=== PATIENT | female | born 1995 | race Two or more races ===

== ENCOUNTER 2019-06-25 13:20 | Emergency (ER) | payer MEDICAID ==
[2019-06-25 13:45] LABS: O2 DELIVERY DEVICE ROOM AIR
[2019-06-25 13:46] LABS: BICARBONATE,VENOUS 22 mmol/l (19-25); O2 SATURATION VENOUS 98.6 % (60-80); PCO2 VENOUS 31 mmHg (41-51); PH,VENOUS 7.46 (7.31-7.41); PO2 VENOUS 101 mmHg (35-42)
--- NOTE | 2019-06-25 14:04 | EDM.PDOC ---
<Roderick Keenan - Last Filed: 06/25/19 13:59> ED HPI GENERAL MEDICAL PROBLEM - General Chief Complaint: General Stated Complaint: CARBON MONOXIDE EXPOSURE Time Seen by Provider: 06/25/19 13:59 Source of Information: Reports: Patient, RN, RN Notes Reviewed History Limitations: Reports: No Limitations - History of Present Illness INITIAL COMMENTS - FREE TEXT/NARRATIVE: 23 y.o F presents to ER after exposure to carbon monoxide at work last night. 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 Pt reports emesis, dizziness, blurry vision which all started this AM but states that this is normal for her being 8 months . Patient reports that she had a headache last night, but symptoms worsened today. Patient reports she works at [employer], was working with one other employee. Patient reports that she is 8 months , reports normal movement last night but reports having diminished movement today. She also complains of eye irritation that started last night as well. Her OB provider is Dr. Hightower. Onset Date: 06/24/19 Duration: Constant Location: Reports: Head, Face Quality: Reports: Ache Severity: Mild Improves with: Reports: None Worsens with: Reports: None Associated Symptoms: Reports: Headaches - Related Data Allergies Allergy/AdvReac Type Severity Reaction Status Date / Time No Known Allergies Allergy Verified 06/25/19 13:30 Home Meds: Home Meds Vit with Ca/FA/Iron [ Plus Iron] 2 tab PO DAILY 03/20/19 [ History] Past Medical History - Past Health History Medical/Surgical History: Denies Medical/Surgical History [employer] History: Reports: Social & Family History - Family History Family Medical History: Noncontributory - Tobacco Use Smoking Status *Q: Never Smoker - Caffeine Use Caffeine Use: Reports: None - Recreational Drug Use Recreational Drug Use: No ED ROS GENERAL - Review of Systems Review Of Systems: Comprehensive ROS is negative, except as noted in HPI. ED EXAM, GENERAL - Physical Exam Exam: See Below Exam Limited By: No Limitations General Appearance: Alert, WD/WN, No Apparent Distress Eye Exam: Bilateral Eye: EOMI, Normal Inspection, PERRL Ears: Normal External Exam, Normal Canal, Hearing Grossly Normal, Normal TMs Ear Exam: Bilateral Ear: Auricle Normal, Canal Normal, TM normal Nose: Normal Inspection, Normal Mucosa, No Blood Throat/Mouth: Normal Inspection, Normal Lips, Normal Teeth, Normal Gums, Normal Oropharynx, Normal Voice, No Airway Compromise Head: Atraumatic, Normocephalic Neck: Normal Inspection, Supple, Non-Tender, Full Range of Motion Respiratory/Chest: No Respiratory Distress, Lungs Clear, Normal Breath Sounds, No Accessory Muscle Use, Chest Non-Tender Cardiovascular: Normal Peripheral Pulses, Regular Rate, Rhythm, No Edema, No Gallop, No JVD, No Murmur, No Rub GI/Abdominal: Normal Bowel Sounds, Soft, Non-Tender, No Organomegaly, No Distention, No Abnormal Bruit, No Mass Extremities: Normal Inspection, Normal Range of Motion, Non-Tender, Normal Capillary Refill, No Pedal Edema Neurological: Alert, Oriented, CN II-XII Intact, Normal Cognition, Normal Gait, Normal Reflexes, No Motor/Sensory Deficits Psychiatric: Normal Affect, Normal Mood Skin Exam: Warm, Dry, Intact, Normal Color, No Rash Course - Vital Signs Last Recorded V/S: Last Vital Signs Temp 36.4 C 06/25/19 13:24 Pulse 97 06/25/19 13:24 Resp 20 06/25/19 13:24 BP 137/100 H 06/25/19 13:24 Pulse Ox 98 06/25/19 13:24 - Orders/Labs/Meds Labs: Laboratory Tests 06/25/19 06/25/19 06/25/19 Range/Units 13:38 13:38 13:38 WBC 7.8 (5.0-10.0) 10^3/uL RBC 3.82 L (4.2-5.4) 10^6/uL Hgb 11.0 L (12.0-16.0) g/dL Hct 32.0 L (37.0-47.0) % MCV 83.8 (80-100) fL MCH 28.8 (27.0-34.0) pg MCHC 34.4 (33.0-35.0) g/dL Plt Count 232 (150-450) 10^3/uL Neut % (Auto) 71.8 (42.2-75.2) % Lymph % (Auto) 21.7 (20.5-50.1) % [place] % (Auto) 5.6 (2-8) % Eos % (Auto) 0.8 L (1.0-3.0) % Baso % (Auto) 0.1 (0.0-1.0) % ABG Carboxyhemoglobin 1.2 (0-10) % VBG pH 7.46 H (7.31-7.41) VBG pCO2 31 L (41-51) mmHg VBG pO2 101 H (35-42) mmHg VBG HCO3 22 (19-25) mmol/l VBG O2 Saturation 98.6 H (60-80) % VBG Base Excess -1.0 ((-2)-(+3)) mmol/l O2 Delivery Device Room air Sodium 135 (135-145) mmol/L Potassium 3.8 (3.6-5.0) mmol/L Chloride 107 (101-111) mmol/L Carbon Dioxide 22.0 (21.0-31.0) mmol/L Anion Gap 9.8 BUN 5 L (7-18) mg/dL Creatinine 0.4 L (0.6-1.3) mg/dL Est Cr Clr Drug Dosing 206.52 mL/min Estimated GFR (MDRD) > 60 BUN/Creatinine Ratio 12.50 Glucose 94 (74-105) mg/dL Calcium 9.2 (8.4-10.2) mg/dl Total Bilirubin 0.4 (0.2-1.0) mg/dL AST 21 (10-42) IU/L ALT 21 (10-60) IU/L Alkaline Phosphatase 206 H (42-121) IU/L Total Protein 6.9 (6.7-8.2) g/dl Albumin 2.9 L (3.2-5.5) g/dl Globulin 4.0 Albumin/Globulin Ratio 0.73 Departure - Departure Disposition: Home, Self-Care 01 Clinical Impression: Carbon monoxide exposure - Discharge Information Forms: ED Department Discharge Care Plan Goals: The patient was advised of the examination and lab results during the visit. The patient was sent from the ED to OB to have a non-stress test for further evaluation of the fetus. If the patient has any additional symptoms or concerns , the patient should either return to the emergency department or visit her primary care facility. Sepsis Event Note - Evaluation Sepsis Screening Result: No Definite Risk - Focused Exam Vital Signs: Vital Signs Temp Pulse Resp BP Pulse Ox 06/25/19 13:24 36.4 C 97 20 137/100 H 98 Date Exam was Performed: 06/25/19 Time Exam was Performed: 13:59 <Matthew Smith M - Last Filed: 06/25/19 14:35> Course - Re-Assessments/Exams Free Text/Narrative Re-Assessment/Exam: 06/25/19 14:31 I have examined the patient. I have discussed findings and treatment plan with the PA student. I agree with the assessment and plan in the following students note. A consult was made with Dr. Rahman regarding he patient's history, examination and lab results. Dr. Rahman encouraged us to have the patient taken to OB to have a non-stress test done. Departure - Departure Time of Disposition: 14:33 Condition: Fair - Discharge Information *PRESCRIPTION DRUG MONITORING PROGRAM REVIEWED*: Not Applicable *COPY OF PRESCRIPTION DRUG MONITORING REPORT IN PATIENT MARIA LUISA: Not Applicable Sepsis Event Note - Focused Exam Date Exam was Performed: 06/25/19 Time Exam was Performed: 14:31
[2019-06-25 14:05] LABS: ANION GAP 9.8; CHLORIDE,CL 107 mmol/L (101-111); SODIUM,NA 135 mmol/L (135-145)
== END 2019-06-25 15:15 | disposition home or self-care (01) ==
LOC: DL.ED 13:20
DX: O9A.213 Injury, poisoning and certain other consequences of external causes complicating pregnancy, third trimester (principal); T58.91XA Toxic effect of carbon monoxide from unspecified source, accidental (unintentional), initial encounter
CPT/HCPCS: 36415; 80053; 82375; 82803; 85025; 99283

== ENCOUNTER 2019-08-02 23:49 | Inpatient (IN) | payer MEDICAID ==
--- NOTE | 2019-08-03 04:23 | PCM.LDHP ---
L&D History of Present Illness - General Date of Service: 08/03/19 (Admit H&P) Admit Problem/Dx: Admission Diagnosis/Problem Admission Diagnosis/Problem 08/03/19 04:19 spontaneous rupture of membranes Source of Information: Patient, Family, Other (EPIC notes/ episode and records) History Limitations: Reports: No Limitations - History of Present Illness Introduction:: Delightful 24yo with SO presents as @ 39w6d with SROM clear fluid. No cxns. Baby active. has had good care. see notes. Location, : Reports: Uterus - Related Data Allergies/Adverse Reactions: Allergies Allergy/AdvReac Type Severity Reaction Status Date / Time No Known Allergies Allergy Verified 08/03/19 00:38 Home Medications: Home Meds Vit with Ca/FA/Iron [ Plus Iron] 1 tab PO DAILY 03/20/19 [ History] Ferrous Sulfate 325 mg PO DAILY 07/24/19 [History] Past Medical History - Past Health History Medical/Surgical History: Denies Medical/Surgical History [employer] History: Reports: Social & Family History - Family History Family Medical History: Noncontributory - Tobacco Use Smoking Status *Q: Never Smoker Second Hand Smoke Exposure: No - Caffeine Use Caffeine Use: Reports: None - Recreational Drug Use Recreational Drug Use: No - Living Situation & Occupation Living situation: Reports: with Family Social History Comment: from [facility]. Father got job here with [employer] and mother moved up here. She came up here to live with mother. Bernabe Aguillon is her SO/FOB and will be involved. nonsmoker. H&P Review of Systems - Review of Systems: Review Of Systems: Comprehensive ROS is negative, except as noted in HPI. L&D Exam - Exam Exam: See Below - Vital Signs Weight: 220 lb - Exam General: Alert, Oriented HEENT: PERRLA, Conjunctiva Clear, EACs Clear, EOMI, Hearing Intact, Mucosa Moist & Neal, Nares Patent, Normal Nasal Septum, Posterior Pharynx Clear, TMs Clear Neck: Supple, Trachea Midline Lungs: Clear to Auscultation, Normal Respiratory Effort Cardiovascular: Regular Rate, Regular Rhythm GI/Abdominal Exam: Normal Bowel Sounds, Soft, Non-Tender, No Organomegaly, No Distention, No Abnormal Bruit, No Mass, Pelvis Stable Rectal Exam: Normal Exam, Normal Rectal Tone Genitourinary: Normal external exam, Cervical dilitation (2+, 90% 0 station), Cervical fluid, Enlarged uterus, Other (vertex) Back Exam: Normal Inspection, Full Range of Motion Extremities: Normal Inspection, Normal Range of Motion, Non-Tender, No Pedal Edema, Normal Capillary Refill Skin: Warm, Dry, Intact Neurological: Cranial Nerves Intact, Reflexes Equal Bilateral Psychiatric: Alert, Normal Affect, Normal Mood - Patient Data Lab Results Last 24 hrs: Laboratory Results - last 24 hr 08/03/19 Range/Units 01:05 Membrane Rupture Positive (NEG) - Problem List (1) Term SNOMED Code(s): 09846188 ICD Code: Z34.90 - ENCNTR FOR SUPRVSN OF NORMAL , UNSP, UNSP TRIMESTER Status: Acute Current Visit: Yes (2) Spontaneous rupture of amniotic membranes SNOMED Code(s): 519238275 ICD Code: [id number] - Status: Acute Current Visit: Yes (3) Blood type O- SNOMED Code(s): 441528471 ICD Code: Z67.41 - TYPE O BLOOD, RH NEGATIVE Status: Acute Current Visit : Yes (4) Rubella immune SNOMED Code(s): 985752794 ICD Code: Z78.9 - OTHER SPECIFIED HEALTH STATUS Status: Acute Current Visit: Yes (5) Group B Streptococcus not isolated SNOMED Code(s): 026782975 ICD Code: [id number] - Status: Acute Current Visit: Yes (6) NST (non-stress test) reactive SNOMED Code(s): 008355281 ICD Code: Z36.89 - ENCOUNTER FOR OTHER SPECIFIED SCREENING Status : Acute Current Visit: Yes Problem List Initiated/Reviewed/Updated: Yes Orders Last 24hrs: Active Orders 24 hr Category Date Time Status EFM [ Heart Rate] [RC] Click to Edit Care 08/03/19 00:52 Active OB Check [OM.PC] Click To Edit Care 08/03/19 00:51 Ordered Assessment/Plan Comment:: Assessment: 24yo @ 39w6d with SROM, not in active labor NST reactive blood type O negative RI GBS negative BV treated cervix 2+cm, 90% effaced, vertex well-applied has gotten Tdap and flu shot Plan: routine admit orders CBC discussed plan with pat and SO will start pitocin augmentation/induction planning for intrathecal all questions answered for this delightful couple. they are happy with plan and care. ronnieb
[2019-08-03] MEDS ORDERED: Sodium Chloride 0.9% 10 ML Syringe FLUSH PRN (04:32)
[2019-08-03] MEDS ORDERED: Misoprostol 400 MCG (4 X 100 MCG TAB) RECTAL PRN (04:32)
[2019-08-03] MEDS ORDERED: Lidocaine 1% 30 ML SDV INJECT PRN (04:32)
[2019-08-03] MEDS ORDERED: Lactated Ringers 1,000 ML IV ONE (04:32)
[2019-08-03] MEDS ORDERED: Methylergonovine 0.2 MG/1 ML Amp IM PRN (04:32)
[2019-08-03] MEDS ORDERED: Carboprost Tromethamine 250 MCG/1 ML Amp IM PRN (04:32)
[2019-08-03] MEDS ORDERED: Tranexamic Acid 1,000 MG in Sodium Chloride 0.9% 100 ML IV PRN (04:32)
[2019-08-03] MEDS ORDERED: Acetaminophen 325 MG Tab PO PRN (04:32)
[2019-08-03] MEDS: Lactated Ringers 1,000 ML IV SCH ×4 (05:10→23:43)
[2019-08-03] MEDS: Oxytocin/Normal Saline 30 UNIT/500 ML BAG IV SCH (05:11)
--- NOTE | 2019-08-03 14:16 | PCM.SN ---
- Free Text/Narrative Note: DOS: 08-03-2019 Progress note: doing well. pitocin @ 6 in tub cervix at my last check was 4+, 90+% effaced, had come anterior, vertex well applied, 0 continues to leak copious amounts clear fluid contractions have increased in strength/intensity and frequency. she is planning intrathecal. tracing look reassuring at this time. late decels have resolved. current baseline 150 with accels present. Cat 1 strip labs: hgb 11.1, WBC 11.6, PLT 225. continue to follow. all questions answered for this delightful couple, Pradip and Ty. ronnieb
[2019-08-03] MEDS: Ondansetron 4 MG/2 ML SDV IVPUSH PRN ×2 (18:26→23:43)
[2019-08-03] MEDS ORDERED: fentaNYL 100 MCG/2 ML SDV ONE ×2 (18:40→23:45)
[2019-08-03] MEDS ORDERED: EPINEPHrine 1 MG/1 ML Amp ONE ×3 (18:40→23:46)
[2019-08-03] MEDS ORDERED: Sodium Bicarbonate 4.2% 2.5 MEQ/5 ML SDV ONE ×3 (18:41→23:46)
[2019-08-03] MEDS ORDERED: Sodium Chloride 0.9% 10 ML Syringe ONE (18:42)
[2019-08-03] MEDS ORDERED: fentaNYL 100 MCG/2 ML SDV ITHECAL ONE (18:42)
--- NOTE | 2019-08-03 19:09 | PCM.SN ---
- Free Text/Narrative Note: Intrathecal.sitting position, sterile prep and drape. 1% lidocaine w bicarb for skinwheal to L2 L3 interspace. Introducer, 24 ga pencan x 1. Pos CSF, neg heme, neg parasthesia. 0.1 ml pf 1:1000 epi, 20 mcg pf sufenta, 30 mcg pf fentanyl, 0.4 ml pf NS and 6 mg of 0.75 % pf marcaine injected after CSF aspiration. Pt to L lateral position. Procedure time 1844 to 1914
--- NOTE | 2019-08-04 00:20 | PCM.SN ---
- Free Text/Narrative Note: Intrathecal.sitting position, sterile prep and drape. 1% lidocaine w bicarb for skinwheal to L2 L3 interspace and L3 L4 interspace. Introducer, 24 ga pencan x 2. 1 attempt at L3 L4 interspace. Pos CSF at L2 L3 interspace, neg heme, neg parasthesia. 0.1 ml pf 1:1000 epi, 20 mcg pf sufenta, 30 mcg pf fentanyl, 0.4 ml pf NS and 6 mg of 0.75 % pf marcaine injected after CSF aspiration. Pt to L lateral position. Procedure time 2345 to 0020
--- NOTE | 2019-08-04 01:07 | PCM.SN ---
- Free Text/Narrative Note: DOS: 08-04-2019 Pt had 2nd intrathecal just placed by Alejandro with good results. Pitocin @ 13. cervix at 6 before, not making very fast changes. Cat 1 strip right now. IUPC placed, FSE placed. cervix very stretchy now--7cm, soft, 90+% effaced inner os vertex, slight overlapping sutures fluid clear. will increase pitocin as needed. baseline appears to be 13-20, peaks at 35-50. MVU and contractions inadequate at this point. will continue to monitor closely. hmb
[2019-08-04] MEDS ORDERED: ceFAZolin 1 GM in Premix Bag 1 BAG IV ONE (02:35)
[2019-08-04] MEDS: Lactated Ringers 1,000 ML IV SCH ×2 (02:40→17:05)
[2019-08-04] MEDS ORDERED: ceFAZolin 2 GM in Premix Bag 1 BAG IV ONE (02:45)
[2019-08-04] MEDS ORDERED: Citric Acid/Sodium Citrate Solution 30 ML Cup PO ONE (02:45)
[2019-08-04] MEDS ORDERED: Oxytocin/Normal Saline 60 UNIT/1,000 ML BAG ONE (02:53)
--- NOTE | 2019-08-04 03:43 | PN ---
DATE: 08/04/2019 A 24-year-old, 1, para 0, who has presented and is currently 40 weeks' gestation, came in with ruptured membranes and not in labor. Has been on Pitocin augmentation all day. She is now at 20 milliunits and has not made any significant cervical progress over the last several hours. Her cervix is now at 6+ cm. It is starting to show some cervical swelling. head has not shown any significant descent over the last several hours, and the baby is in a persistent OP presentation. She is having some overlapping/overriding of sutures. She has had 2 intrathecals, and internal IUPC and scalp electrode have been placed, and we have been monitoring her with those. At this point, with my last check, she did develop some bradycardia into the 90s that was sustained for several minutes. The Pitocin was turned off, and the heart tones have recovered. At this point, she is remote from vaginal delivery and is not making any significant progress. Options were discussed with the patient and the father of the baby, and we will proceed with primary low-transverse section for her. As the heart tones at this point have recovered, if they continue to look good, we will hope to go with spinal anesthesia for her. Dr. Cisneros will be assisting. Further management pending status. I have reviewed the procedure with the patient and the father of the baby with risks, alternatives, and benefits. Risks included, but were not limited to hemorrhage and the possible need of blood transfusion with its inherent risks, infection with possible need of antibiotics, we will plan on Ancef 2 g for preop antibiotic, the risk of blood clot, DVT and PE, and the use of Jose stockings, SCDs and early ambulation to help with prevention, the risk of injury to maternal organs or fetus, the risk of reaction to anesthesia, etc. They appeared to understand these risks and wished to proceed. Consent was obtained both verbally and written. We will proceed as planned. [facility] /[id number]
[2019-08-04] MEDS: Oxytocin/Normal Saline 30 UNIT/500 ML BAG IV SCH (04:19)
[2019-08-04] MEDS ORDERED: Naloxone 2 MG/2 ML Syringe IVPUSH PRN (04:35)
[2019-08-04] MEDS ORDERED: ePHEDrine 50 MG/ML SDV IVPUSH PRN (04:35)
[2019-08-04] MEDS ORDERED: diphenhydrAMINE 50 MG/ML SDV IVPUSH PRN (04:35)
[2019-08-04] MEDS ORDERED: Acetaminophen/oxyCODONE 325-5 MG Tab PO PRN (04:35)
--- NOTE | 2019-08-04 04:56 | OR ---
DATE: 08/04/2019 PROCEDURE: Primary low-transverse section with 2 layer closure--( patient is a TOLAC/ candidate) SURGEON: Briseyda Rahman MD. LOOP DRIER OPERATOR: Rema Piedra MD. PREOPERATIVE DIAGNOSES: 1. A 24-year-old, 1, para 0, at 40 weeks gestation. 2. Spontaneous rupture of membranes with failure to progress/failure to descend. 3. Persistent occiput posterior presentation with intolerance to labor. 4. O negative blood type. 5. Rubella immune. 6. Group B streptococcus negative. POSTOPERATIVE DIAGNOSES: 1. A 24-year-old, 1, now para 1, at 40 weeks' gestation. 2. Primary low-transverse section for failure to progress/failure to descend and confirmed persistent right occiput posterior presentation. 3. A viable male , 8 pounds/3615 g with scores of 9 and 9. 4. O negative blood type. 5. Rubella immune. 6. Group B streptococcus negative. 7. PLTCS with 2 layer closure--patient is a TOLAC/ candidate. PROCEDURE IN DETAIL: The patient was brought down to the OR suite and underwent spinal anesthesia with excellent results. She was prepped and draped in the usual sterile manner. A Boo catheter had been placed on the OB floor. A time - out was performed in my presence. A purple skin marker was used to amado the appropriate incision site. A skin incision was made with the scalpel and carried down through the subcutaneous tissue with electrocautery. The fascia was divided transversely. Fascial flaps, superior and inferior were developed with sharp and blunt dissection. The rectus was divided in the midline and the peritoneum was identified and entered bluntly. This was opened until we had excellent visualization of the lower uterine segment. Extra large Rivas retractor was placed without difficulty. Bladder flap was developed with sharp and blunt dissection. A stab incision was made into the lower uterine segment and extended bilaterally with blunt dissection. The baby was confirmed to be in a right OP position. The vertex was elevated up into the incision, and this viable male infant was delivered. A loop of cord was noted to be near the chin and neck, but was not wrapped around the neck. The baby was born at 3:42 a.m. on 08/04/2019. scores were 9 and 9 at 1 and 5 minutes respectively, and he had a strong cry at . He was suctioned and dried immediately, and Dr. Cisneros doubly clamped and then cut the cord and carried the baby over to the waiting nursery staff. His weight was later found to be 8 pounds/3615 g. A cord blood sample was obtained by vt. Then, the placenta was removed intact. The uterus was wiped clean and dry. The placenta was later inspected and found to be complete with a small succenturiate lobe. A 3-vessel cord was noted. The uterine incision edges were grasped with Noriega forceps and then closed with a running locking #1 Vicryl suture. A second imbricating layer was placed with excellent hemostasis. The incision was inspected and found to be hemostatic. The Rivas retractor was removed and the gutters were irrigated, aspirated, and examined and found to be dry and free of all clots. The incision was again inspected and was hemostatic. The uterus, fallopian tubes, ovaries, and maternal organs appeared within normal limits. The peritoneum was closed with a running Vicryl suture. The fascial layer was closed with a running PDS loop suture with excellent results. The subcutaneous layer was irrigated, and there were no sign of significant bleeders. The skin layer was brought together with virgil. The patient tolerated the procedure well and there were no intraoperative complications. Her estimated blood loss was 400 mL. She continued to drain clear urine throughout the procedure. All instrument and sponge counts were correct. The patient was transferred to recovery in good condition. We will follow routine postop/ and recovery instructions. [facility] /[id number] [place]
[2019-08-04] MEDS: Prenatal Multivitamin with Calcium/Folic Acid/Iron Tab PO SCH (08:57)
[2019-08-04] MEDS: Simethicone 80 MG Tab.Chew PO SCH ×4 (08:58→22:14)
[2019-08-04] MEDS ORDERED: Oxytocin/Normal Saline 30 UNIT/500 ML BAG IV ONE (09:56)
[2019-08-04] MEDS: Ketorolac 30 MG/ML SDV IVPUSH SCH ×3 (10:36→22:15)
[2019-08-04] MEDS: ceFAZolin 1 GM in Premix Bag 1 BAG IV SCH ×2 (10:37→19:18)
[2019-08-04] MEDS ORDERED: Morphine PF 1 MG/ML Amp ITHECAL ONE (11:55)
[2019-08-04] MEDS ORDERED: Promethazine 25 MG/ML SDV IM ONE (11:55)
[2019-08-04] MEDS ORDERED: Ketorolac 30 MG/ML SDV IVPUSH ONE (11:55)
[2019-08-04] MEDS ORDERED: Ondansetron 4 MG/2 ML SDV IV ONE (11:55)
[2019-08-04] MEDS ORDERED: Dexamethasone 4 MG/ML SDV IV ONE (11:55)
[2019-08-04] MEDS ORDERED: ePHEDrine 50 MG/ML SDV IV ONE ×2 (11:55)
[2019-08-04] MEDS: Docusate Sodium 100 MG Cap PO PRN (22:13)
[2019-08-04] MEDS ORDERED: EPINEPHrine 1 MG/1 ML Amp ONE (23:45)
[2019-08-04] MEDS ORDERED: fentaNYL 100 MCG/2 ML SDV ITHECAL ONE (23:45)
[2019-08-04] MEDS ORDERED: Sodium Bicarbonate 4.2% 2.5 MEQ/5 ML SDV ONE (23:45)
[2019-08-04] MEDS ORDERED: Sodium Chloride 0.9% 10 ML Syringe ONE (23:45)
[2019-08-05] MEDS: Lactated Ringers 1,000 ML IV SCH (01:45)
[2019-08-05] MEDS: ceFAZolin 1 GM in Premix Bag 1 BAG IV SCH (02:34)
[2019-08-05] MEDS: Ibuprofen 800 MG Tab PO PRN ×3 (06:36→21:06)
[2019-08-05] MEDS: Docusate Sodium 100 MG Cap PO PRN ×2 (09:02→21:05)
[2019-08-05] MEDS: Prenatal Multivitamin with Calcium/Folic Acid/Iron Tab PO SCH (09:02)
[2019-08-05] MEDS: Simethicone 80 MG Tab.Chew PO SCH ×4 (09:03→21:06)
[2019-08-05] MEDS: Acetaminophen/oxyCODONE 325-5 MG Tab PO PRN ×4 (09:03→21:07)
--- NOTE | 2019-08-05 16:26 | PCM.PNPP ---
- General Info Date of Service: 08/05/19 Subjective Update: 24-year-old POD#1 s/p primary LTCS. Patient is doing well today. Still having some abdominal pain, mostly on the lateral aspects of the incision. This does improve with pain medication. She is tolerating a general diet. No fever, chills, nausea, vomiting, dizziness or lightheadedness. She has ambulated minimally without any issues. She has urinated without difficulty. is going well. No breast/nipple pain. No concerns per patient or per nursing staff. Functional Status: Reports: Pain Controlled, Tolerating Diet. Denies: New Symptoms - Review of Systems General: Reports: No Symptoms HEENT: Reports: No Symptoms Pulmonary: Reports: No Symptoms Cardiovascular: Reports: No Symptoms Gastrointestinal: Reports: Abdominal Pain Genitourinary: Reports: No Symptoms Musculoskeletal: Reports: Back Pain Skin: Reports: No Symptoms Neurological: Reports: No Symptoms - General Info Date of Service: 08/05/19 - Patient Data Vital Signs - Most Recent: Last Vital Signs Temp 37.1 C 08/05/19 08:00 Pulse 90 08/05/19 08:00 Resp 16 08/05/19 08:00 BP 129/78 08/05/19 08:00 Pulse Ox 100 08/05/19 08:00 Weight - Most Recent: 99.79 kg I&O - Last 24 Hours: Intake & Output 08/05/19 08/05/19 08/05/19 06:59 14:59 22:59 Intake Total 1291 0 1 Output Total 1225 Balance 66 0 1 Lab Results - Last 24 Hours: Laboratory Results - last 24 hr 08/03/19 08/05/19 Range/Units 04:15 06:04 WBC 10.2 H (5.0-10.0) 10^3/uL RBC 2.71 L (4.2-5.4) 10^6/uL Hgb 7.8 L D (12.0-16.0) g/dL Hct 23.4 L (37.0-47.0) % MCV 86.3 (80-100) fL MCH 28.8 (27.0-34.0) pg MCHC 33.3 (33.0-35.0) g/dL Plt Count 159 (150-450) 10^3/uL Blood Type O NEGATIVE Gel Antibody Screen Negative Med Orders - Current: Current Medications Acetaminophen (Tylenol) 650 mg PO Q4H PRN PRN Reason: Pain (Mild 1-3) and fever Carboprost Tromethamine (Hemabate Ds) 250 mcg IM ASDIRECTED PRN PRN Reason: HEMORRHAGE Diphenhydramine HCl (Benadryl) 25 mg IVPUSH Q6H PRN PRN Reason: Itching or Nausea Docusate Sodium (Colace) 100 mg PO Q12H PRN PRN Reason: Constipation Last Admin: 08/05/19 09:02 Dose: 100 mg Ephedrine Sulfate (Ephedrine Sulfate) 5 mg IVPUSH SEECOMMENT PRN PRN Reason: Other Lactated Ringer's (Ringers, Lactated) 1,000 mls @ 125 mls/hr IV ASDIRECTED [facility]EF[facility]INO Last Admin: 08/05/19 01:45 Dose: 125 mls/hr Oxytocin/Sodium Chloride (Pitocin In Ns 30 Unit/500 Ml) 30 unit in 500 mls @ 2 mls/hr IV TITRATE [facility]; Protocol Last Titration: 08/04/19 09:01 Dose: 0 mls/hr Tranexamic Acid 1,000 mg/ (Sodium Chloride) 110 mls @ 660 mls/hr IV ONETIME PRN PRN Reason: Bleeding Ibuprofen (Motrin) 800 mg PO Q8H PRN PRN Reason: mild pain or fever Last Admin: 08/05/19 13:20 Dose: 800 mg Lidocaine HCl (Xylocaine-Mpf 1%) 30 ml INJECT ASDIRECTED PRN PRN Reason: Perineal Repair Methylergonovine Maleate (Methergine) 0.2 mg IM ASDIRECTED PRN PRN Reason: Hemorrhage Misoprostol (Cytotec) 800 mcg RECTAL ASDIRECTED PRN PRN Reason: Hemorrhage Naloxone HCl (Narcan) 0.1 mg IVPUSH SEECOMMENT PRN PRN Reason: Respiratory Depression Ondansetron HCl (Zofran) 4 mg IVPUSH Q4H PRN PRN Reason: Nausea/Vomiting Last Admin: 08/03/19 23:43 Dose: 4 mg Oxycodone/Acetaminophen (Percocet 325-5 Mg) 1 tab PO Q4H PRN PRN Reason: Pain (moderate 4-6) Last Admin: 04/07/20 04:28 Dose: 1 tab Oxycodone/Acetaminophen (Percocet 325-5 Mg) 2 tab PO Q4H PRN PRN Reason: Pain (moderate 4-6) Last Admin: 08/05/19 13:21 Dose: 2 tab Prenat Multivit/[place]/Iron/Folic Ac ( Plus Iron) 1 each PO DAILY [facility] Last Admin: 08/05/19 09:02 Dose: 1 each Simethicone (Simethicone) 160 mg PO QID [facility] Last Admin: 08/05/19 13:22 Dose: 160 mg Sodium Chloride (Saline Flush) 10 ml FLUSH ASDIRECTED PRN PRN Reason: Keep Vein Open Discontinued Medications Citric Acid/Sodium Citrate (Bicitra Solution) 30 ml PO ONETIME ONE Stop: 08/04/19 02:46 Last Admin: 08/04/19 06:31 Dose: Not Given Epinephrine HCl (Adrenalin) Confirm Administered Dose 1 mg .ROUTE .STK-MED ONE Stop: 08/03/19 18:41 Last Admin: 08/03/19 19:34 Dose: Not Given Epinephrine HCl (Adrenalin) Confirm Administered Dose 1 mg .ROUTE .STK-MED ONE Stop: 08/03/19 23:47 Last Admin: 08/04/19 06:30 Dose: Not Given Fentanyl (Sublimaze) Confirm Administered Dose 100 mcg .ROUTE .STK-MED ONE Stop: 08/03/19 18:41 Last Admin: 08/03/19 19:34 Dose: Not Given Fentanyl (Sublimaze) Confirm Administered Dose 100 mcg .ROUTE .STK-MED ONE Stop: 08/03/19 23:46 Last Admin: 08/04/19 06:30 Dose: Not Given Lactated Ringer's (Ringers, Lactated) 1,000 mls @ 500 mls/hr IV BOLUS ONE Stop: 08/03/19 06:31 Last Admin: 08/03/19 05:16 Dose: Not Given Cefazolin Sodium/Dextrose 2 gm (/ Premix) 50 mls @ 100 mls/hr IV ONETIME ONE Stop: 08/04/19 03:14 Last Admin: 08/04/19 03:15 Dose: 100 mls/hr Oxytocin/Sodium Chloride (Pitocin In Ns 30 Unit/500 Ml) Confirm Administered Dose 60 unit in 1,000 mls @ as directed .ROUTE .STK-MED ONE Stop: 08/04/19 02:54 Cefazolin Sodium/Dextrose 1 gm (/ Premix) 50 mls @ 100 mls/hr IV Q8H [facility] Stop: 08/05/19 03:29 Last Infusion: 08/05/19 03:14 Dose: Infused Cefazolin Sodium/Dextrose 1 gm (/ Premix) 50 mls @ 100 mls/hr IV ONETIME ONE Stop: 08/04/19 03:04 Last Admin: 08/04/19 02:37 Dose: 100 mls/hr Oxytocin/Sodium Chloride (Pitocin In Ns 30 Unit/500 Ml) 30 unit in 500 mls @ as directed IV .STK-MED ONE Stop: 08/04/19 09:57 Ketorolac Tromethamine (Toradol) 15 mg IVPUSH Q6H [facility] Stop: 08/04/19 22:01 Last Admin: 08/04/19 22:15 Dose: 15 mg Sodium Bicarbonate (Sodium Bicarbonate 4.2%) Confirm Administered Dose 2.5 meq .ROUTE .STK-MED ONE Stop: 08/03/19 18:42 Last Admin: 08/03/19 19:34 Dose: Not Given Sodium Bicarbonate (Sodium Bicarbonate 4.2%) Confirm Administered Dose 2.5 meq .ROUTE .STK-MED ONE Stop: 08/03/19 23:47 Last Admin: 08/04/19 06:30 Dose: Not Given Sufentanil Citrate (Sufenta) Confirm Administered Dose 50 mcg .ROUTE .STK-MED ONE Stop: 08/03/19 18:42 Last Admin: 08/03/19 19:35 Dose: Not Given Sufentanil Citrate (Sufenta) Confirm Administered Dose 50 mcg .ROUTE .STK-MED ONE Stop: 08/03/19 23:47 Last Admin: 08/04/19 06:31 Dose: Not Given - Interaction Disposition, : [place] in Room with Family Interaction: Holding Feeding: Breastfed ; Nursed Well Support Person: Significant Other - Recovery Exam Fundal Tone: Firm Fundal Level: 1 Fingerbreadths Below Umbilicus Fundal Placement: Midline Lochia Amount: Scant Lochia Color: Rubra/Red Perineum Description: Intact, Minimal Bruising/Swelling Episiotomy/Laceration: None Bladder Status: Voiding Urinary Elimination: Indwelling Catheter - Exam General: Alert, Severe Distress Lungs: Clear to Auscultation, Normal Respiratory Effort Cardiovascular: Regular Rate, Regular Rhythm, No Murmurs GI/Abdominal Exam: Soft Skin: Warm, Dry, Intact Wound/Incisions: Dressing Dry and Intact, No Drainage Neurological: No New Focal Deficit - Problem List & Annotations (1) Status post delivery SNOMED Code(s): 362551551, 744319407 Code(s): Z98.891 - HISTORY OF UTERINE SCAR FROM PREVIOUS SURGERY Status: Acute Current Visit: Yes (2) Blood type O- SNOMED Code(s): 875616062 Code(s): Z67.41 - TYPE O BLOOD, RH NEGATIVE Status: Acute Current Visit: Yes (3) Group B Streptococcus not isolated SNOMED Code(s): 725575141 Code(s): CLL3467 - Status: Acute Current Visit: Yes (4) Rubella immune SNOMED Code(s): 455924857 Code(s): Z78.9 - OTHER SPECIFIED HEALTH STATUS Status: Acute Current Visit: Yes (5) Spontaneous rupture of amniotic membranes SNOMED Code(s): 668789884 Code(s): RQA1790 - Status: Acute Current Visit: Yes (6) Term SNOMED Code(s): 21243434 Code(s): Z34.90 - ENCNTR FOR SUPRVSN OF NORMAL , UNSP, UNSP TRIMESTER Status: Acute Current Visit: Yes - Problem List Review Problem List Initiated/Reviewed/Updated: Yes - Assessment Assessment:: 24-year-old, now , POD#1 status post primary section for failure to progress - Plan Plan:: 1. Continue routine postoperative cares 2. well 3. Pain well-controlled 4. Anticipate discharge 08/07/2019. May consider discharge tomorrow if patient and baby are doing well. Dr. Gail Hightower MD
[2019-08-06] MEDS: Acetaminophen/oxyCODONE 325-5 MG Tab PO PRN ×2 (04:39→10:04)
[2019-08-06] MEDS: Ibuprofen 800 MG Tab PO PRN ×2 (04:40→13:23)
[2019-08-06] MEDS: Prenatal Multivitamin with Calcium/Folic Acid/Iron Tab PO SCH (10:03)
[2019-08-06] MEDS: Simethicone 80 MG Tab.Chew PO SCH ×2 (10:03→13:15)
[2019-08-06] MEDS: Docusate Sodium 100 MG Cap PO PRN (10:04)
--- NOTE | 2019-08-06 12:36 | PCM.DCSUM1 ---
Discharge Summary - Hospital Course Free Text/Narrative:: 24-year-old, now , POD#2 status post primary LTCS at 40w0d for failure to progress and intolerance of labor Diagnosis: Stroke: No - Discharge Data Discharge Date: 08/06/19 Discharge Disposition: Home, Self-Care 01 Condition: Good - Referral to Home Health Primary Care Physician: Dara Hightower MD - Discharge Diagnosis/Problem(s) (1) Status post delivery SNOMED Code(s): 905233459, 456939911 ICD Code: Z98.891 - HISTORY OF UTERINE SCAR FROM PREVIOUS SURGERY Status: Acute Current Visit: Yes (2) Blood type O- SNOMED Code(s): 422448222 ICD Code: Z67.41 - TYPE O BLOOD, RH NEGATIVE Status: Acute Current Visit : Yes (3) Group B Streptococcus not isolated SNOMED Code(s): 423664879 ICD Code: ZAK3117 - Status: Acute Current Visit: Yes (4) Rubella immune SNOMED Code(s): 163316639 ICD Code: Z78.9 - OTHER SPECIFIED HEALTH STATUS Status: Acute Current Visit: Yes (5) Spontaneous rupture of amniotic membranes SNOMED Code(s): 328311906 ICD Code: AQC4421 - Status: Acute Current Visit: Yes (6) Term SNOMED Code(s): 83218642 ICD Code: Z34.90 - ENCNTR FOR SUPRVSN OF NORMAL , UNSP, UNSP TRIMESTER Status: Acute Current Visit: Yes - Patient Summary/Data Operative Procedure(s) Performed: Primary LTCS Complications: None Consults: Consultations 08/04/19 04:35 Consult to [employer]itarian Aide [CONS] Routine Labs Pending at D/C: None Recommended Follow-up Testing/Procedures: None Planned Operative Procedure(s) after DC: None Hospital Course: Please see subjective section - Patient Instructions Diet: Regular Diet as Tolerated Activity: As Tolerated, No Lifting Over 20 Pounds Driving: Do Not Drive (while taking pain medication) Showering/Bathing: May Shower Wound/Incision Care: Keep Operative Site/Wound Site Clean and Dry Notify Provider of: Fever, Increased Pain, Swelling and Redness, Drainage - Discharge Plan *PRESCRIPTION DRUG MONITORING PROGRAM REVIEWED*: Not Applicable *COPY OF PRESCRIPTION DRUG MONITORING REPORT IN PATIENT MARIA LUISA: Not Applicable Home Medications: Home Meds Vit with Ca/FA/Iron [ Plus Iron] 1 tab PO DAILY 03/20/19 [ History] Ferrous Sulfate 325 mg PO DAILY 07/24/19 [History] Acetaminophen [Tylenol] 650 mg PO Q4H PRN tablet 08/06/19 [Rx] Acetaminophen/oxyCODONE [Percocet 325-5 MG] 1 tab PO Q4H PRN tablet 08/06/19 [ Rx] Docusate Sodium [Colace] 100 mg PO Q12H PRN cap 08/06/19 [Rx] Ibuprofen [Motrin] 800 mg PO Q8H PRN tablet 08/06/19 [Rx] Simethicone 160 mg PO QID tab.chew 08/06/19 [Rx] Patient Handouts: Baby Blues, Delivery, Care After - Discharge Summary/Plan Comment DC Time >30 min.: No Discharge Summary/Plan Comment: Discharge home today. Follow-up in 2 days for staple removal. Follow-up in 6- 8 weeks for follow-up. #30 tabs Percocet prescribed along with iron and simethicone. Continue taking vitamin while . Reasons to return to clinic or present to the ED were reviewed with the patient , and all questions were answered. - General Info Date of Service: 08/06/19 Subjective Update: Patient is doing well today. Abdominal pain is present but now improved. Does respond well to pain medications. Tolerating a general diet. Urinating and passing gas without difficulty. Ambulating without difficulty. No dizziness, lightheadness, fever, chills, nausea or vomiting. is going fairly well. She is complaining of some left nipple tenderness. No other concerns per patient. No concerns per nursing staff. Functional Status: Reports: Pain Controlled, Tolerating Diet, Ambulating, Urinating. Denies: New Symptoms - Review of Systems General: Reports: No Symptoms HEENT: Reports: No Symptoms Pulmonary: Reports: No Symptoms Cardiovascular: Reports: No Symptoms Gastrointestinal: Reports: Abdominal Pain Genitourinary: Reports: No Symptoms Musculoskeletal: Reports: No Symptoms Skin: Reports: No Symptoms Neurological: Reports: No Symptoms - Patient Data Vitals - Most Recent: Last Vital Signs Temp 36.8 C 08/06/19 08:00 Pulse 84 08/06/19 08:00 Resp 16 08/06/19 08:00 BP 121/81 08/06/19 08:00 Pulse Ox 99 08/06/19 00:00 Weight - Most Recent: 99.79 kg I&O - Last 24 hours: Intake & Output 08/05/19 08/06/19 08/06/19 22:59 06:59 14:59 Intake Total 1 Balance 1 Lab Results - Last 24 hrs: Laboratory Results - last 24 hr 08/03/19 08/05/19 Range/Units 04:15 06:04 Maternal Bleed Neg Blood Type O NEGATIVE Gel Antibody Screen Negative Med Orders - Current: Current Medications Acetaminophen (Tylenol) 650 mg PO Q4H PRN PRN Reason: Pain (Mild 1-3) and fever Carboprost Tromethamine (Hemabate Ds) 250 mcg IM ASDIRECTED PRN PRN Reason: HEMORRHAGE Diphenhydramine HCl (Benadryl) 25 mg IVPUSH Q6H PRN PRN Reason: Itching or Nausea Docusate Sodium (Colace) 100 mg PO Q12H PRN PRN Reason: Constipation Last Admin: 08/06/19 10:04 Dose: 100 mg Ephedrine Sulfate (Ephedrine Sulfate) 5 mg IVPUSH SEECOMMENT PRN PRN Reason: Other Lactated Ringer's (Ringers, Lactated) 1,000 mls @ 125 mls/hr IV ASDIRECTED [facility]ERINO Last Admin: 08/05/19 01:45 Dose: 125 mls/hr Oxytocin/Sodium Chloride (Pitocin In Ns 30 Unit/500 Ml) 30 unit in 500 mls @ 2 mls/hr IV TITRATE ZEFERINO; Protocol Last Titration: 08/04/19 09:01 Dose: 0 mls/hr Tranexamic Acid 1,000 mg/ (Sodium Chloride) 110 mls @ 660 mls/hr IV ONETIME PRN PRN Reason: Bleeding Ibuprofen (Motrin) 800 mg PO Q8H PRN PRN Reason: mild pain or fever Last Admin: 08/06/19 04:40 Dose: 800 mg Lidocaine HCl (Xylocaine-Mpf 1%) 30 ml INJECT ASDIRECTED PRN PRN Reason: Perineal Repair Methylergonovine Maleate (Methergine) 0.2 mg IM ASDIRECTED PRN PRN Reason: Hemorrhage Misoprostol (Cytotec) 800 mcg RECTAL ASDIRECTED PRN PRN Reason: Hemorrhage Naloxone HCl (Narcan) 0.1 mg IVPUSH SEECOMMENT PRN PRN Reason: Respiratory Depression Ondansetron HCl (Zofran) 4 mg IVPUSH Q4H PRN PRN Reason: Nausea/Vomiting Last Admin: 08/03/19 23:43 Dose: 4 mg Oxycodone/Acetaminophen (Percocet 325-5 Mg) 1 tab PO Q4H PRN PRN Reason: Pain (moderate 4-6) Last Admin: 08/05/19 04:28 Dose: 1 tab Oxycodone/Acetaminophen (Percocet 325-5 Mg) 2 tab PO Q4H PRN PRN Reason: Pain (moderate 4-6) Last Admin: 08/06/19 10:04 Dose: 2 tab Prenat Multivit/[employer]/Iron/Folic Ac ( Plus Iron) 1 each PO DAILY [facility] Last Admin: 08/06/19 10:03 Dose: 1 each Simethicone (Simethicone) 160 mg PO QID [facility] Last Admin: 08/06/19 10:03 Dose: 160 mg Sodium Chloride (Saline Flush) 10 ml FLUSH ASDIRECTED PRN PRN Reason: Keep Vein Open Discontinued Medications Citric Acid/Sodium Citrate (Bicitra Solution) 30 ml PO ONETIME ONE Stop: 08/04/19 02:46 Last Admin: 08/04/19 06:31 Dose: Not Given Dexamethasone (Dexamethasone) 8 mg IV .STK-MED ONE Stop: 08/04/19 11:56 Ephedrine Sulfate (Ephedrine Sulfate) 10 mg IV .STK-MED ONE Stop: 08/04/19 11:56 Ephedrine Sulfate (Ephedrine Sulfate) 10 mg IV .STK-MED ONE Stop: 08/04/19 11:56 Epinephrine HCl (Adrenalin) Confirm Administered Dose 1 mg .ROUTE .STK-MED ONE Stop: 08/03/19 18:41 Last Admin: 08/03/19 19:34 Dose: Not Given Epinephrine HCl (Adrenalin) Confirm Administered Dose 1 mg .ROUTE .STK-MED ONE Stop: 08/03/19 23:47 Last Admin: 08/04/19 06:30 Dose: Not Given Epinephrine HCl (Adrenalin) 0.1 mg .XX .STK-MED ONE Stop: 08/03/19 18:43 Epinephrine HCl (Adrenalin) 0.1 mg .XX .STK-MED ONE Stop: 08/04/19 23:46 Fentanyl (Sublimaze) Confirm Administered Dose 100 mcg .ROUTE .STK-MED ONE Stop: 08/03/19 18:41 Last Admin: 08/03/19 19:34 Dose: Not Given Fentanyl (Sublimaze) Confirm Administered Dose 100 mcg .ROUTE .STK-MED ONE Stop: 08/03/19 23:46 Last Admin: 08/04/19 06:30 Dose: Not Given Fentanyl (Sublimaze) 30 mcg ITHE[place] .STK-MED ONE Stop: 08/03/19 18:43 Fentanyl (Sublimaze) 30 mcg ITHECAL .STK-MED ONE Stop: 08/04/19 23:46 Lactated Ringer's (Ringers, Lactated) 1,000 mls @ 500 mls/hr IV BOLUS ONE Stop: 08/03/19 06:31 Last Admin: 08/03/19 05:16 Dose: Not Given Cefazolin Sodium/Dextrose 2 gm (/ Premix) 50 mls @ 100 mls/hr IV ONETIME ONE Stop: 08/04/19 03:14 Last Admin: 08/04/19 03:15 Dose: 100 mls/hr Oxytocin/Sodium Chloride (Pitocin In Ns 30 Unit/500 Ml) Confirm Administered Dose 60 unit in 1,000 mls @ as directed .ROUTE .STK-MED ONE Stop: 08/04/19 02:54 Cefazolin Sodium/Dextrose 1 gm (/ Premix) 50 mls @ 100 mls/hr IV Q8H [facility] Stop: 08/05/19 03:29 Last Infusion: 08/05/19 03:14 Dose: Infused Cefazolin Sodium/Dextrose 1 gm (/ Premix) 50 mls @ 100 mls/hr IV ONETIME ONE Stop: 08/04/19 03:04 Last Admin: 08/04/19 02:37 Dose: 100 mls/hr Oxytocin/Sodium Chloride (Pitocin In Ns 30 Unit/500 Ml) 30 unit in 500 mls @ as directed IV .STK-MED ONE Stop: 08/04/19 09:57 Ketorolac Tromethamine (Toradol) 15 mg IVPUSH Q6H [facility] Stop: 08/04/19 22:01 Last Admin: 08/04/19 22:15 Dose: 15 mg Ketorolac Tromethamine (Toradol) 30 mg IVPUSH .STK-MED ONE Stop: 08/04/19 11:56 Morphine Sulfate (Duramorph Pf) 0.2 mg ITHECAL .STK-MED ONE Stop: 08/04/19 11:56 Ondansetron HCl (Zofran) 4 mg IV .STK-MED ONE Stop: 08/04/19 11:56 Promethazine HCl (Phenergan) 12.5 mg IM .STK-MED ONE Stop: 08/04/19 11:56 Sodium Bicarbonate (Sodium Bicarbonate 4.2%) Confirm Administered Dose 2.5 meq .ROUTE .STK-MED ONE Stop: 08/03/19 18:42 Last Admin: 08/03/19 19:34 Dose: Not Given Sodium Bicarbonate (Sodium Bicarbonate 4.2%) Confirm Administered Dose 2.5 meq .ROUTE .STK-MED ONE Stop: 08/03/19 23:47 Last Admin: 08/04/19 06:30 Dose: Not Given Sodium Bicarbonate (Sodium Bicarbonate 4.2%) 0.5 meq .XX .STK-MED ONE Stop: 08/03/19 18:43 Sodium Bicarbonate (Sodium Bicarbonate 4.2%) 0.5 meq .XX .STK-MED ONE Stop: 08/04/19 23:46 Sodium Chloride (Saline Flush) 0.4 ml .XX .STK-MED ONE Stop: 08/03/19 18:43 Sodium Chloride (Saline Flush) 0.4 ml .XX .STK-MED ONE Stop: 08/04/19 23:46 Sufentanil Citrate (Sufenta) Confirm Administered Dose 50 mcg .ROUTE .STK-MED ONE Stop: 08/03/19 18:42 Last Admin: 08/03/19 19:35 Dose: Not Given Sufentanil Citrate (Sufenta) Confirm Administered Dose 50 mcg .ROUTE .STK-MED ONE Stop: 08/03/19 23:47 Last Admin: 08/04/19 06:31 Dose: Not Given Sufentanil Citrate (Sufenta) 20 mcg ITHECAL .STK-MED ONE Stop: 08/03/19 18:43 Sufentanil Citrate (Sufenta) 20 mcg ITHECAL .STK-MED ONE Stop: 08/04/19 23:46 - Exam General: Reports: Alert, Oriented Lungs: Reports: Clear to Auscultation, Normal Respiratory Effort Cardiovascular: Reports: Regular Rate, Regular Rhythm, No Murmurs GI/Abdominal Exam: Soft Back Exam: Reports: Normal Inspection Extremities: No Pedal Edema Skin: Reports: Warm, Dry, Intact Wound/Incisions: Reports: Healing Well, No Drainage
== END 2019-08-06 15:15 | disposition home or self-care (01) | DRG 788 ==
LOC: DL.OBCHECK 23:49 → DL.OB 08-03 04:40 → OBSVTOIN 08-04 03:42
PROVIDERS: ADMIT Family Medicine; ATTEND Family Medicine
PROC: 10D00Z1 Extraction of Products of Conception, Low, Open Approach (ICD-10-PCS; principal; 2019-08-04)
DX: O62.1 Secondary uterine inertia (principal); Z37.0 Single live birth; Z3A.40 40 weeks gestation of pregnancy; Z28.82 Immunization not carried out because of caregiver refusal; Z67.41 Type O blood, Rh negative
CPT/HCPCS: 36415; 51701; 51702; 84112; 85027; 85461; 86850; 86900; 86901; A9270-GY; J0171; J0690; J1100; J1885; J2274; J2405; J2550; J2590; J2790; J3010; J7120

== ENCOUNTER 2021-03-13 00:55 | Emergency (ER) | payer MEDICAID ==
[2021-03-13] MEDS ORDERED: Sodium Chloride 0.9% 1,000 ML IV ONE (01:51)
[2021-03-13 01:52] LABS: ANION GAP 19.1 mEq/L (7-13); CHLORIDE,CL 101 mmol/L (98-107); SODIUM,NA 140 mmol/L (136-145)
[2021-03-13 01:56] LABS: CORONAVIRUS COVID-19 NAA NEGATIVE (NEGATIVE)
[2021-03-13] MEDS ORDERED: cefTRIAXone 1 GM in Sodium Chloride 0.9% 50 ML IV ONE (02:16)
[2021-03-13] MEDS ORDERED: Ketorolac 30 MG/ML SDV IVPUSH ONE (02:17)
[2021-03-13] MEDS ORDERED: Ondansetron 4 MG/2 ML SDV IV ONE (02:17)
[2021-03-13] MEDS ORDERED: cefTRIAXone 1 GM, Lidocaine 1% 2.1 ML IM ONE ×2 (02:30)
[2021-03-13] MEDS ORDERED: Ondansetron 4 MG Tab.DIS PO ONE (02:31)
[2021-03-13] MEDS ORDERED: Acetaminophen/HYDROcodone 325-10 MG Tab PO ONE (02:31)
[2021-03-13] MEDS ORDERED: Ondansetron 4 MG Tab.DIS ONE (02:32)
--- NOTE | 2021-03-13 03:53 | EDM.PDOC ---
ED HPI GENERAL MEDICAL PROBLEM - General Chief Complaint: Flank Pain Stated Complaint: LOWER BACK AREA INFLAMED, PAIN Time Seen by Provider: 03/13/21 01:45 Source of Information: Reports: Patient, RN, RN Notes Reviewed History Limitations: Reports: No Limitations - History of Present Illness INITIAL COMMENTS - FREE TEXT/NARRATIVE: Patient is a 25-year-old female who presents to the ER with complaint of left- sided back pain. Patient states earlier in the week she felt she possibly had a UTI. Admits to urinary frequency, urgency, burning. Patient admits to fever and chills, nausea. Patient states there is a family history of kidney stones. Denies chances of . Onset: Gradual Left Flank Pain Score (Numeric/FACES): 10 - Related Data Allergies Allergy/AdvReac Type Severity Reaction Status Date / Time No Known Allergies Allergy Verified 03/13/21 01:23 Home Meds: Home Meds Vit with Ca/FA/Iron [ Plus Iron] 1 tab PO DAILY 03/20/19 [History] Ferrous Sulfate 325 mg PO DAILY 07/24/19 [History] Acetaminophen [Tylenol] 650 mg PO Q4H PRN tablet 08/06/19 [Rx] Acetaminophen/oxyCODONE [Percocet 325-5 MG] 1 tab PO Q4H PRN tablet 08/06/19 [Rx] Docusate Sodium [Colace] 100 mg PO Q12H PRN cap 08/06/19 [Rx] Ibuprofen [Motrin] 800 mg PO Q8H PRN tablet 08/06/19 [Rx] Simethicone 160 mg PO QID tab.chew 08/06/19 [Rx] Past Medical History - Past Health History Medical/Surgical History: Denies Medical/Surgical History [employer] History: Reports: Social & Family History - Family History Family Medical History: No Pertinent Family History - Tobacco Use Tobacco Use Status *Q: Current Every Day Tobacco User Years of Tobacco use: 2 Packs/Tins Daily: 0.2 - Caffeine Use Caffeine Use: Reports: None - Recreational Drug Use Recreational Drug Use: Yes Recreational Drug Type: Reports: Marijuana/Hashish - Living Situation & Occupation Living situation: Reports: with Family ED ROS GENERAL - Review of Systems Review Of Systems: Comprehensive ROS is negative, except as noted in HPI. ED EXAM, RENAL/ - Physical Exam Exam: See Below Exam Limited By: No Limitations General Appearance: Alert, WD/WN, Anxious, Moderate Distress Eye Exam: Bilateral Eye: EOMI, Normal Inspection Ears: Normal External Exam, Hearing Grossly Normal Nose: Normal Inspection Throat/Mouth: Normal Inspection, Normal Voice, No Airway Compromise Head: Atraumatic, Normocephalic Neck: Normal Inspection, Supple, Non-Tender, Full Range of Motion Respiratory/Chest: No Respiratory Distress, Lungs Clear, Normal Breath Sounds, No Accessory Muscle Use, Chest Non-Tender Cardiovascular: Normal Peripheral Pulses, Regular Rate, Rhythm, No Edema, No Gallop, No JVD, No Murmur, No Rub GI/Abdominal: Normal Bowel Sounds, Soft, Non-Tender (Female) Exam: Deferred Rectal (Female) Exam: Deferred Back Exam: Normal Inspection, Full Range of Motion, CVA Tenderness (L). No: CVA Tenderness (R) Extremities: Normal Inspection, Normal Range of Motion, Non-Tender, No Pedal Edema, Normal Capillary Refill Neurological: Alert, Oriented, CN II-XII Intact, Normal Cognition, Normal Gait, Normal Reflexes, No Motor/Sensory Deficits Psychiatric: Normal Affect, Normal Mood, Anxious, Tearful Skin Exam: Warm, Dry, Intact, Normal Color, No Rash Lymphatic: No Adenopathy Course - Vital Signs Last Recorded V/S: Last Vital Signs Temp 97.9 F 03/13/21 01:22 Pulse 102 H 03/13/21 01:22 Resp 22 H 03/13/21 01:22 BP 134/57 L 03/13/21 01:22 Pulse Ox 100 03/13/21 01:22 - Orders/Labs/Meds Orders: Active Orders 24 hr Category Date Time Status CULTURE BLOOD [BC] Stat Lab 03/13/21 01:30 Results CULTURE URINE [RM] Stat Lab 03/13/21 01:55 Received Labs: Laboratory Tests 03/13/21 03/13/21 03/13/21 Range/Units 01:10 01:30 01:30 WBC 12.0 H (5.0-10.0) 10^3/uL RBC 4.37 (4.2-5.4) 10^6/uL Hgb 12.2 D (12.0-16.0) g/dL Hct 37.2 (37.0-47.0) % MCV 85.1 (80-100) fL MCH 27.9 (27.0-34.0) pg MCHC 32.8 L (33.0-35.0) g/dL Plt Count 348 D (150-450) 10^3/uL Neut % (Auto) 68.2 (42.2-75.2) % Lymph % (Auto) 24.4 (20.5-50.1) % [place] % (Auto) 5.4 (2-8) % Eos % (Auto) 1.8 (1.0-3.0) % Baso % (Auto) 0.2 (0.0-1.0) % Sodium 140 (136-145) mmol/L Potassium 4.1 (3.5-5.1) mmol/L Chloride 101 (98-107) mmol/L Carbon Dioxide 24 (21-32) mmol/L Anion Gap 19.1 H (7-13) mEq/L BUN 14 (7-18) mg/dL Creatinine 0.88 (0.55-1.02) mg/dL Est Cr Clr Drug Dosing TNP Estimated GFR (MDRD) > 60 BUN/Creatinine Ratio 15.9 (No establ ref range) Glucose 95 (70-99) mg/dL Lactic Acid (0.4-2.0) mmol/L Calcium 9.2 (8.5-10.1) mg/dL Total Bilirubin 0.3 (0.2-1.0) mg/dL AST 16 (15-37) U/L ALT 32 (14-59) U/L Alkaline Phosphatase 136 H (46-116) U/L C-Reactive Protein 2.3 H (0.0-0.9) mg/dL Total Protein 8.4 H (6.4-8.2) g/dL Albumin 3.9 (3.4-5.0) g/dL Globulin 4.5 Albumin/Globulin Ratio 0.9 Urine Color (YELLOW) Urine Appearance (CLEAR) Urine pH (5.0-9.0) Ur Specific [place] (1.005-1.030) Urine Protein (NEGATIVE) Urine Glucose (UA) (NEGATIVE) Urine Ketones (NEGATIVE) Urine Occult Blood (NEGATIVE) Urine Nitrite (NEGATIVE) Urine Bilirubin (NEGATIVE) Urine Urobilinogen (0.2-1.0) mg/dL Ur Leukocyte Esterase (NEGATIVE) Urine RBC (0-5) /HPF Urine WBC (0-5/HPF) /HPF Ur Epithelial Cells (NOT SEEN) /HPF Urine Bacteria (0-FEW/HPF) /HPF Urine HCG, Qual Influenza Type A RNA Negative (NEGATIVE) Influenza Type B RNA Negative (NEGATIVE) SARS-CoV-2 RNA ([place]) Negative (NEGATIVE) 03/13/21 03/13/21 03/13/21 Range/Units 01:30 01:55 01:58 WBC (5.0-10.0) 10^3/uL RBC (4.2-5.4) 10^6/uL Hgb (12.0-16.0) g/dL Hct (37.0-47.0) % MCV (80-100) fL MCH (27.0-34.0) pg MCHC (33.0-35.0) g/dL Plt Count (150-450) 10^3/uL Neut % (Auto) (42.2-75.2) % Lymph % (Auto) (20.5-50.1) % [place] % (Auto) (2-8) % Eos % (Auto) (1.0-3.0) % Baso % (Auto) (0.0-1.0) % Sodium (136-145) mmol/L Potassium (3.5-5.1) mmol/L Chloride (98-107) mmol/L Carbon Dioxide (21-32) mmol/L Anion Gap (7-13) mEq/L BUN (7-18) mg/dL Creatinine (0.55-1.02) mg/dL Est Cr Clr Drug Dosing Estimated GFR (MDRD) BUN/Creatinine Ratio (No establ ref range) Glucose (70-99) mg/dL Lactic Acid 1.1 (0.4-2.0) mmol/L Calcium (8.5-10.1) mg/dL Total Bilirubin (0.2-1.0) mg/dL AST (15-37) U/L ALT (14-59) U/L Alkaline Phosphatase (46-116) U/L C-Reactive Protein (0.0-0.9) mg/dL Total Protein (6.4-8.2) g/dL Albumin (3.4-5.0) g/dL Globulin Albumin/Globulin Ratio Urine Color Yellow (YELLOW) Urine Appearance Cloudy (CLEAR) Urine pH 7.5 (5.0-9.0) Ur Specific [place] 1.020 (1.005-1.030) Urine Protein 100 H (NEGATIVE) Urine Glucose (UA) Negative (NEGATIVE) Urine Ketones Negative (NEGATIVE) Urine Occult Blood Large H (NEGATIVE) Urine Nitrite Positive H (NEGATIVE) Urine Bilirubin Negative (NEGATIVE) Urine Urobilinogen 0.2 (0.2-1.0) mg/dL Ur Leukocyte Esterase Large H (NEGATIVE) Urine RBC 0-5 (0-5) /HPF Urine WBC Packed H (0-5/HPF) /HPF Ur Epithelial Cells Many H (NOT SEEN) /HPF Urine Bacteria Many H (0-FEW/HPF) /HPF Urine HCG, Qual Negative Influenza Type A RNA (NEGATIVE) Influenza Type B RNA (NEGATIVE) SARS-CoV-2 RNA ([place]) (NEGATIVE) Meds: Medications Discontinued Medications Generic Name Dose Route Start Last Admin Trade Name Freq PRN Reason Stop Dose Admin Hydrocodone Bitart/Acetaminophen 1 tab 03/13/21 02:31 03/13/21 02:36 Acetaminophen/Hydrocodone 325-10 Mg Tab PO 03/13/21 02:32 1 tab ONETIME ONE Administration Ceftriaxone Sodium 1 gm/ 0 gm 03/13/21 02:30 Lidocaine HCl 2.1 ml IM 03/13/21 02:31 ONETIME ONE Sodium Chloride 1,000 mls @ 999 mls/hr 03/13/21 01:51 03/13/21 02:24 Normal Saline IV 03/13/21 02:51 999 mls/hr .BOLUS ONE Administration Ceftriaxone Sodium 1 gm/ 50 mls @ 100 mls/hr 03/13/21 02:16 Sodium Chloride IV 03/13/21 02:45 ONETIME ONE Ketorolac Tromethamine 30 mg 03/13/21 02:17 Ketorolac 30 Mg/Ml Sdv IVPUSH 03/13/21 02:18 ONETIME ONE Ondansetron HCl 4 mg 03/13/21 02:17 Ondansetron 4 Mg/2 Ml Sdv IV 03/13/21 02:18 ONETIME ONE Ondansetron HCl 4 mg 03/13/21 02:31 03/13/21 02:35 Ondansetron 4 Mg Tab.Dis PO 03/13/21 02:32 4 mg ONETIME ONE Administration Ondansetron HCl Confirm 03/13/21 02:32 03/13/21 02:53 Ondansetron 4 Mg Tab.Dis Administered 03/13/21 02:33 Not Given Dose 4 mg .ROUTE .STK-MED ONE Departure - Departure Time of Disposition: 03:53 Disposition: Home, Self-Care 01 Condition: Fair Clinical Impression: Pyelonephritis UTI (urinary tract infection) Qualifiers: Urinary tract infection type: acute cystitis Hematuria presence: without hematuria Qualified Code(s): N30.00 - Acute cystitis without hematuria - Discharge Information *PRESCRIPTION DRUG MONITORING PROGRAM REVIEWED*: No *COPY OF PRESCRIPTION DRUG MONITORING REPORT IN PATIENT MARIA LUISA: No Instructions: Pyelonephritis, Adult, [id number], Urinary Tract Infection, Adult, [id number] Forms: ED Department Discharge Additional Instructions: Drink plenty of water Rx: Ciprofloxacin 500 mg orally twice daily for 7 days Rx: Ondansetron 4 mg ODT 1 orally every 6-8 hours as needed for nausea May drink cranberry juice in moderation Follow-up with your primary care provider next week Return to the ER with any worsening of symptoms May use Tylenol and/or ibuprofen as directed for pain/fever Sepsis Event Note (ED) - Focused Exam Vital Signs: Vital Signs Temp Pulse Resp BP Pulse Ox 03/13/21 01:22 97.9 F 102 H 22 H 134/57 L 100 - My Orders Last 24 Hours: My Active Orders 03/13/21 01:30 CULTURE BLOOD [BC] Stat 03/13/21 01:55 CULTURE URINE [RM] Stat - Assessment/Plan Last 24 Hours: My Active Orders 03/13/21 01:30 CULTURE BLOOD [BC] Stat 03/13/21 01:55 CULTURE URINE [RM] Stat
== END 2021-03-13 04:33 | disposition home or self-care (01) ==
LOC: DL.ED 00:55
DX: N30.00 Acute cystitis without hematuria (principal); N12 Tubulo-interstitial nephritis, not specified as acute or chronic; Z72.0 Tobacco use; Z20.822 Contact with and (suspected) exposure to COVID-19
CPT/HCPCS: 0240U; 36415; 80053; 81001; 81025; 83605; 85025; 86140; 87040; 87086; 87088; 87186; 96372; 99284; A9270; J0696; J7030

== ENCOUNTER 2022-05-09 07:52 | Emergency (ER) | payer MEDICAID ==
[2022-05-09] MEDS ORDERED: Lidocaine 2% Viscous Solution 15 ML UD PO ONE (08:20)
[2022-05-09] MEDS ORDERED: Ibuprofen 800 MG Tab PO ONE (08:21)
[2022-05-09] MEDS ORDERED: Acetaminophen/Codeine 300-30 MG Tab PO ONE (08:21)
== END 2022-05-09 08:41 | disposition home or self-care (01) ==
LOC: DL.ED 07:52
DX: K00.6 Disturbances in tooth eruption (principal); Z79.899 Other long term (current) drug therapy
CPT/HCPCS: 99282; A9270

== ENCOUNTER 2022-09-14 04:36 | Emergency (ER) | payer MEDICAID ==
[2022-09-14] MEDS ORDERED: Sodium Chloride 0.9% 10 ML Syringe FLUSH PRN (04:43)
[2022-09-14] MEDS ORDERED: Sodium Chloride 0.9% 1,000 ML IV ONE (04:53)
[2022-09-14] MEDS ORDERED: Ondansetron 4 MG/2 ML SDV IVPUSH ONE (04:54)
[2022-09-14 05:02] LABS: BASOPHILS PERCENT AUTO 0.2 % (0.0-1.0); EOSINOPHILS PERCENT AUTO 1.5 % (1.0-3.0); HEMATOCRIT 39.2 % (37.0-47.0); HEMOGLOBIN 13.4 g/dL (12.0-16.0); LYMPHOCYTES PERCENT AUTO 14.8 % (20.5-50.1); MEAN CORPUSCULAR HEMOGLOBIN 29.5 pg (27.0-34.0); MEAN CORPUSCULAR HGB CONC 34.2 g/dL (33.0-35.0); MEAN CORPUSCULAR VOLUME 86.3 fL (80-100); MONOCYTES PERCENT AUTO 6.6 % (2-8); NEUTROPHILS PERCENT AUTO 76.9 % (42.2-75.2); PLATELET COUNT,PLT 277 10^3/uL (150-450); RED BLOOD CELL COUNT 4.54 10^6/uL (4.2-5.4); WHITE BLOOD CELL COUNT,WBC 16.5 10^3/uL (5.0-10.0)
[2022-09-14 05:24] LABS: INR 0.9 (0.9-1.2); PROTHROMBIN TIME 9.7 SEC (9.0-12.0); PTT,PARTIAL THROMBOPLSTIN TIME 30.3 SEC (22.0-34.0)
[2022-09-14 05:26] LABS: LACTIC ACID 0.9 mmol/L (0.4-2.0)
[2022-09-14 05:29] LABS: A/G RATIO 0.8; ALANINE AMINOTRANSFERASE,ALT 111 U/L (14-59); ALBUMIN 3.7 g/dL (3.4-5.0); ALKALINE PHOSPHATASE 223 U/L (46-116); ANION GAP 18.9 mEq/L (7-13); ASPARTATE AMNIOTRANSFERASE,AST 64 U/L (15-37); BILIRUBIN TOTAL 0.8 mg/dL (0.2-1.0); BLOOD UREA NITROGEN,BUN 6 mg/dL (7-18); CALCIUM 9.3 mg/dL (8.5-10.1); CARBON DIOXIDE,CO2 23 mmol/L (21-32); CHLORIDE,CL 101 mmol/L (98-107); CREATININE 0.75 mg/dL (0.55-1.02); EST CRCL DRUG DOSING (CG) 106.41 mL/min; GLUCOSE RANDOM 110 mg/dL (70-99); POTASSIUM,K 3.9 mmol/L (3.5-5.1); PROTEIN TOTAL,TP 8.5 g/dL (6.4-8.2); SODIUM,NA 139 mmol/L (136-145)
[2022-09-14 05:30] LABS: C-REACTIVE PROTEIN 14.3 mg/dL (0.0-0.9); ESTIMATED GFR 113 mL/min (>=60)
[2022-09-14] MEDS ORDERED: Codeine/Promethazine 10-6.25 MG/5 ML Syrup 5 ML UD Cup PO ONE (05:44)
[2022-09-14] MEDS ORDERED: Azithromycin 250 MG Tab PO ONE (05:48)
[2022-09-14] MEDS ORDERED: Amoxicillin 500 MG Cap PO ONE (05:48)
== END 2022-09-14 06:08 | disposition home or self-care (01) ==
LOC: DL.ED 04:36
DX: J10.00 Influenza due to other identified influenza virus with unspecified type of pneumonia (principal); Z20.822 Contact with and (suspected) exposure to COVID-19
CPT/HCPCS: 36415; 71045; 80053; 83605; 84145; 84484; 85025; 85610; 85730; 86140; 87635; 87804; 93005; 96361; 96374; 99284; A9270; J2405; J7030; 93010; J3490; U0002

== ENCOUNTER 2023-01-22 05:29 | Emergency (ER) | payer SELFPAY | END 2023-01-22 06:10 | disposition left against medical advice (07) | LOC: DL.ED 05:29 | DX: Z53.21 Procedure and treatment not carried out due to patient leaving prior to being seen by health care provider (principal) ==

== ENCOUNTER 2023-10-02 09:28 | Emergency (ER) | payer MEDICAID ==
[2023-10-02] MEDS: Ondansetron 4 MG Tab.DIS PO ONE (11:12)
[2023-10-02] MEDS: Acetaminophen/HYDROcodone 325-5 MG Tab PO ONE (11:12)
[2023-10-02] MEDS: Albuterol 0.083% 2.5 MG/3 ML Neb Soln NEB ONE (11:13)
== END 2023-10-02 12:05 | disposition home or self-care (01) ==
LOC: DL.ED 09:28
DX: O99.512 Diseases of the respiratory system complicating pregnancy, second trimester (principal); J45.21 Mild intermittent asthma with (acute) exacerbation; J06.9 Acute upper respiratory infection, unspecified; Z79.899 Other long term (current) drug therapy; Z3A.22 22 weeks gestation of pregnancy
CPT/HCPCS: 87081; 87430; 87635; 87804; 99285; A9270; J7613-GY; U0002

== ENCOUNTER 2024-08-07 18:29 | Emergency (ER) | payer MEDICAID ==
[2024-08-07] MEDS: Ibuprofen 800 MG Tab PO ONE (19:00)
[2024-08-07] MEDS: Acetaminophen 500 MG Tab PO ONE (19:01)
[2024-08-07] MEDS: Amoxicillin/Clavulanate K 875-125 MG Tab PO ONE (19:06)
== END 2024-08-07 19:12 | disposition home or self-care (01) ==
LOC: DL.ED 18:29
DX: H66.001 Acute suppurative otitis media without spontaneous rupture of ear drum, right ear (principal); J45.909 Unspecified asthma, uncomplicated; Z79.899 Other long term (current) drug therapy; Z86.16 Personal history of COVID-19
CPT/HCPCS: 99282; A9270-GY

== ENCOUNTER 2024-08-11 15:16 | Emergency (ER) | payer MEDICAID | END 2024-08-11 15:39 | disposition home or self-care (01) | LOC: DL.ED 15:16 | DX: J06.9 Acute upper respiratory infection, unspecified (principal); B97.89 Other viral agents as the cause of diseases classified elsewhere; J45.909 Unspecified asthma, uncomplicated; Z79.899 Other long term (current) drug therapy; Z86.16 Personal history of COVID-19 | CPT/HCPCS: 99283; 99284 ==

== ENCOUNTER 2024-08-27 00:12 | Emergency (ER) | payer MEDICAID | END 2024-08-27 01:00 | disposition home or self-care (01) | LOC: DL.ED 00:12 | DX: S39.012A Strain of muscle, fascia and tendon of lower back, initial encounter (principal); J45.909 Unspecified asthma, uncomplicated; F17.200 Nicotine dependence, unspecified, uncomplicated; Z79.899 Other long term (current) drug therapy; Z86.16 Personal history of COVID-19; Y04.8XXA Assault by other bodily force, initial encounter | CPT/HCPCS: 99283 ==